=== PATIENT | female | born 2000 | race Caucasian/White ===

== ENCOUNTER → 2024-07-01 13:33 | Outpatient (BNVA) | payer OTHER, SELFPAY | PROVIDERS: PCP Nurse Practitioner Family; Visit Provider Nurse Practitioner Family | DX: Z78.9 Other specified health status (principal); R53.83 Other fatigue; F41.9 Anxiety disorder, unspecified | CPT/HCPCS: 80053; 83550; 84439; 84443; 85025 ==

== ENCOUNTER → 2024-08-05 08:01 | Outpatient (BNVA) | payer OTHER, SELFPAY | PROVIDERS: PCP Nurse Practitioner Family; Visit Provider Nurse Practitioner Family | DX: D64.9 Anemia, unspecified (principal) | CPT/HCPCS: 83550; 85025 ==

== ENCOUNTER → 2024-09-04 09:03 | Outpatient (BNVA) | payer OTHER, SELFPAY | PROVIDERS: PCP Nurse Practitioner Family; Visit Provider Nurse Practitioner Family | DX: D50.8 Other iron deficiency anemias (principal); R53.83 Other fatigue | CPT/HCPCS: 82607; 83550; 85025 ==

== ENCOUNTER → 2024-10-08 11:36 | Outpatient (BNVA) | payer OTHER, SELFPAY | PROVIDERS: PCP Nurse Practitioner Family; Visit Provider Nurse Practitioner Family | DX: D50.8 Other iron deficiency anemias (principal); Z12.4 Encounter for screening for malignant neoplasm of cervix; Z78.9 Other specified health status; Z12.39 Encounter for other screening for malignant neoplasm of breast | CPT/HCPCS: 82607; 83550; 85025; 87070; 87205; 88175 ==

== ENCOUNTER → 2024-10-14 08:40 | Outpatient (BNVA) | payer OTHER, SELFPAY | PROVIDERS: PCP Nurse Practitioner Family; Visit Provider Nurse Practitioner Family | DX: D22.9 Melanocytic nevi, unspecified (principal) | CPT/HCPCS: 88305 ==

== ENCOUNTER → 2025-08-27 10:40 | Outpatient (BNVA) | payer OTHER, SELFPAY | PROVIDERS: PCP Nurse Practitioner Family; Visit Provider Nurse Practitioner Family | DX: D50.8 Other iron deficiency anemias (principal) | CPT/HCPCS: 80053; 82607; 83550; 85025 ==